=== PATIENT | male | born 1955 | race Caucasian/White ===

== ENCOUNTER 2021-06-07 00:05 | Emergency (ER) | payer MEDICARE, BC ==
[2021-06-07 00:25] LABS: #Eosinphils 0.2 thou/uL (0.0-0.7); #Lymphocytes 0.9 thou/uL (1.20-3.40); #Monocytes 0.6 thou/uL (0.11-0.59); #Neutrophils 8.5 thou/uL (1.40-6.50); %Eosinophils 2.1 % (0.0-10.0); %Lymphocytes 8.5 % (21.0-51.0); %Monocytes 6.2 % (0.0-10.0); %Neutrophils 83.2 % (42.0-75.0); Hemoglobin 9.2 g/dL (14.0-18.0); Mean Corpuscular Hemoglobin 29.7 pg (27.0-31.0); Mean Corpuscular Volume 93.1 fL (78.0-98.0); Mean Platelet Volume 7.3 fL (7.4-10.4); Platelet Count 443 thou/uL (130-400); RBC Distribution Width 15.5 % (11.5-14.5); Red Blood Cell (RBC) Count 3.09 mill/uL (4.70-6.10); White Blood Cell (WBC) Count 10.2 thou/uL (4.8-10.8)
[2021-06-07 00:37] LABS: INR-International Normal Ratio 1.1; Prothrombin Time 13.8 sec (12.0-14.7)
[2021-06-07 00:44] LABS: ALT (SGPT) Less than 7 U/L (8-55); Albumin 2.9 g/dL (3.4-4.8); Alkaline Phosphatase 96 U/L (40-110); Anion Gap 25 mmol/L (10-20); BUN (Urea Nitrogen) 12 mg/dL (8.4-25.7); Bilirubin, Total 0.4 mg/dL (0.2-1.2); CK (CPK) 21 U/L (30-200); Calc. Creatinine Clearance 0 mL/min (70-130); Calcium 8.5 mg/dL (7.8-10.44); Carbon Dioxide 15 mmol/L (23-31); Chloride 102 mmol/L (98-107); Globulin 3.2 g/dL (2.4-3.5); Glucose 90 mg/dL (80-115); Potassium 3.9 mmol/L (3.5-5.1); Protein, Total 6.1 g/dL (5.8-8.1); Sodium 138 mmol/L (136-145)
[2021-06-07 01:20] LABS: AST (SGOT) 4 U/L (5-34)
[2021-06-07] MEDS ORDERED: Valproate Sodium 250 mg/5 ml UD Cup PER TUBE SCH (02:00)
[2021-06-07 02:04] LABS: Bilirubin Negative (Negative); Blood, Urine 3+ (Negative); Clarity Clear (Clear); Glucose, Urine (Dipstick) Normal (Negative); Ketone, Urine Trace mg/dL (Negative); Leukocyte Negative Leu/uL (Negative); Nitrite Negative (Negative); Protein, Urine (Dipstick) 20 mg/dL (Neg-Trace); RBC/HPF Greater than 50 HPF (0-3); Squamous Epithelial 0-3 HPF (0-3); WBC/HPF 21-50 HPF (0-3); pH, Urine 7.5 (5.0-9.0)
[2021-06-07 02:05] LABS: Bacteria/HPF 1+ HPF (None Seen)
[2021-06-07] MEDS ORDERED: cefTRIAXone\\ROCEPHIN 2 GM VIAL ONE (02:27)
[2021-06-07] MEDS ORDERED: Iopamidol 370 76% 100 ML VIAL ONE (09:18)
== END 2021-06-07 03:02 | disposition home or self-care (01) ==
LOC: ERS 00:05
DX: R56.9 Unspecified convulsions (principal); N39.0 Urinary tract infection, site not specified; G20 Parkinson's disease
CPT/HCPCS: 36416; 70450; 70496; 70498; 80053; 81003; 81015; 82550; 83605; 84484; 85025; 85610; 85730; 93005; J0696; Q9967

== ENCOUNTER 2021-06-08 22:17 | Inpatient (IN) | payer MEDICARE, BC ==
[2021-06-08 23:20] LABS: #Eosinphils 0.2 thou/uL (0.0-0.7); #Lymphocytes 0.7 thou/uL (1.20-3.40); #Monocytes 0.8 thou/uL (0.11-0.59); #Neutrophils 12.2 thou/uL (1.40-6.50); %Eosinophils 1.1 % (0.0-10.0); %Lymphocytes 5.4 % (21.0-51.0); %Monocytes 5.5 % (0.0-10.0); Hemoglobin 8.4 g/dL (14.0-18.0); Mean Corpuscular HGB CONC 32.2 g/dL (32.0-36.0); Mean Corpuscular Volume 93.2 fL (78.0-98.0); Platelet Count 378 thou/uL (130-400); RBC Distribution Width 15.6 % (11.5-14.5); White Blood Cell (WBC) Count 13.9 thou/uL (4.8-10.8)
[2021-06-08 23:41] LABS: ALT (SGPT) Less than 7 U/L (8-55); AST (SGOT) 5 U/L (5-34); Albumin 2.7 g/dL (3.4-4.8); Alkaline Phosphatase 86 U/L (40-110); Anion Gap 13 mmol/L (10-20); BUN (Urea Nitrogen) 8 mg/dL (8.4-25.7); Bilirubin, Total 0.3 mg/dL (0.2-1.2); Calc. Creatinine Clearance 0 mL/min (70-130); Calcium 8.2 mg/dL (7.8-10.44); Carbon Dioxide 26 mmol/L (23-31); Chloride 102 mmol/L (98-107); Globulin 2.8 g/dL (2.4-3.5); Glucose 101 mg/dL (80-115); Potassium 3.7 mmol/L (3.5-5.1); Protein, Total 5.5 g/dL (5.8-8.1); Sodium 137 mmol/L (136-145)
[2021-06-09] MEDS ORDERED: cefTRIAXone\\ROCEPHIN 2 GM VIAL ONE (00:14)
[2021-06-09] MEDS ORDERED: Vancomycin 1.5 GRAM/300 ML BAG 1.5 GM in Premix Bag 1 BAG IVPB SCH (01:15)
[2021-06-09 02:31] LABS: Lactic Acid 1.5 mmol/L (0.5-2.2)
[2021-06-09 02:41] LABS: Troponin I 0.011 ng/mL (< 0.028)
[2021-06-09] MEDS ORDERED: Ondansetron ODT 4 MG TAB SL PRN (03:00)
[2021-06-09] MEDS ORDERED: Ondansetron PF 4 MG/2 ML Vial IVP PRN ×2 (03:00→07:57)
[2021-06-09] MEDS ORDERED: Acetaminophen 325 MG TAB PO PRN (03:00)
[2021-06-09] MEDS: Sodium Chloride 0.9% 1,000 ML IV SCH ×2 (06:02→15:19)
[2021-06-09 06:11] LABS: Troponin I Less than 0.010 ng/mL (< 0.028)
[2021-06-09 06:46] VITALS: BMI 20.1
[2021-06-09] MEDS ORDERED: Ondansetron ODT 4 MG TAB PO PRN (07:57)
[2021-06-09] MEDS ORDERED: Senokot S 8.6-50 MG TAB PO PRN (07:57)
[2021-06-09] MEDS: Cefepime 1 GM in Sodium Chloride 0.9% 100 ML IVPB SCH ×2 (08:33→21:12)
[2021-06-09] MEDS ORDERED: [UNRECOGNIZED DRUG - OTHER] IV SCH (08:45)
[2021-06-09 08:53] LABS: CK (CPK) 20 U/L (30-200); Magnesium 1.8 mg/dL (1.6-2.6)
[2021-06-09] MEDS ORDERED: Valproate Sodium 500 MG in Sodium Chloride 0.9% 100 ML IVPB SCH (09:00)
[2021-06-09] MEDS: Vancomycin 1 GM in Premix Bag 1 BAG IVPB SCH (14:59)
[2021-06-09] MEDS: Carbidopa/Levodopa 25-250 mg Tablet PO SCH ×3 (15:20→21:12)
[2021-06-09] MEDS: Ferrous Sulfate 325 MG TAB PO SCH ×3 (15:20→21:12)
[2021-06-09 17:24] LABS: SARS-CoV-2 PCR by NAA Not Detected (NotDetected)
[2021-06-09] MEDS ORDERED: Valproic Acid 250 MG CAP PO SCH (21:00)
[2021-06-09] MEDS: Valproate Sodium 250 mg/5 ml UD Cup PO SCH (21:13)
[2021-06-09] MEDS: Simvastatin 10 MG TAB PO SCH (21:13)
[2021-06-09] MEDS: Gabapentin 300 MG CAP PO SCH (21:13)
[2021-06-10] MEDS: Vancomycin 1 GM in Premix Bag 1 BAG IVPB SCH ×2 (03:35→16:13)
[2021-06-10 05:11] LABS: #Eosinphils 0.2 thou/uL (0.0-0.7); #Lymphocytes 0.6 thou/uL (1.20-3.40); #Monocytes 0.5 thou/uL (0.11-0.59); #Neutrophils 6.6 thou/uL (1.40-6.50); %Basophils 0.2 % (0.0-1.0); %Eosinophils 1.9 % (0.0-10.0); %Lymphocytes 7.7 % (21.0-51.0); %Monocytes 6.2 % (0.0-10.0); Hemoglobin 7.5 g/dL (14.0-18.0); Mean Corpuscular HGB CONC 31.2 g/dL (32.0-36.0); Platelet Count 315 thou/uL (130-400); RBC Distribution Width 15.9 % (11.5-14.5); White Blood Cell (WBC) Count 7.9 thou/uL (4.8-10.8)
[2021-06-10 05:34] LABS: Anion Gap 10 mmol/L (10-20); BUN (Urea Nitrogen) 7 mg/dL (8.4-25.7); Calc. Creatinine Clearance 103 mL/min (70-130); Calcium 7.9 mg/dL (7.8-10.44); Carbon Dioxide 25 mmol/L (23-31); Chloride 109 mmol/L (98-107); Glucose 86 mg/dL (80-115); Potassium 3.4 mmol/L (3.5-5.1); Sodium 141 mmol/L (136-145)
[2021-06-10] MEDS: Cefepime 1 GM in Sodium Chloride 0.9% 100 ML IVPB SCH ×2 (09:19→22:21)
[2021-06-10 14:00] LABS: Vancomycin, Trough 24.9 ug/mL
[2021-06-10] MEDS: Valproate Sodium 250 mg/5 ml UD Cup PO SCH ×2 (14:02→22:28)
[2021-06-10] MEDS: Multivit, Therapeutic 1 TAB PO SCH (14:03)
[2021-06-10] MEDS: Carbidopa/Levodopa 25-250 mg Tablet PO SCH ×5 (14:03→22:19)
[2021-06-10] MEDS: Carvedilol 3.125 MG TAB PO SCH (14:03)
[2021-06-10] MEDS: Clopidogrel Bisulfate 75 MG TAB PO SCH (14:04)
[2021-06-10] MEDS: Aspirin 81 mg Enteric Coated Tablet PO SCH (14:04)
[2021-06-10] MEDS: Ferrous Sulfate 325 MG TAB PO SCH ×2 (16:14→16:15)
[2021-06-10 20:00] LABS: Bilirubin Negative (Negative); Blood, Urine Negative (Negative); Clarity Clear (Clear); Glucose, Urine (Dipstick) Normal (Negative); Ketone, Urine 10 mg/dL (Negative); Leukocyte Negative Leu/uL (Negative); Mucous/LPF Rare LPF (<2+); Nitrite Negative (Negative); Protein, Urine (Dipstick) 20 mg/dL (Neg-Trace); RBC/HPF 0-3 HPF (0-3); Renal Epithelial 0-3 HPF (None Seen); Specific Gravity, Urine 1.023 (1.002-1.036); Squamous Epithelial None Seen HPF (0-3); Urobilinogen Normal mg/dL (Less than 2); WBC/HPF 0-3 HPF (0-3); pH, Urine 6.5 (5.0-9.0)
[2021-06-10 20:11] LABS: Bacteria/HPF Rare-Few HPF (None Seen)
[2021-06-10] MEDS: Gabapentin 300 MG CAP PO SCH (22:41)
[2021-06-10] MEDS: Simvastatin 10 MG TAB PO SCH (22:41)
[2021-06-11 07:03] LABS: #Eosinphils 0.1 thou/uL (0.0-0.7); #Lymphocytes 0.7 thou/uL (1.20-3.40); #Monocytes 0.4 thou/uL (0.11-0.59); #Neutrophils 6.5 thou/uL (1.40-6.50); %Basophils 0.1 % (0.0-1.0); %Eosinophils 1.4 % (0.0-10.0); %Lymphocytes 9.4 % (21.0-51.0); %Monocytes 4.9 % (0.0-10.0); %Neutrophils 84.3 % (42.0-75.0); Hemoglobin 6.9 g/dL (14.0-18.0); Mean Corpuscular HGB CONC 31.8 g/dL (32.0-36.0); Mean Corpuscular Hemoglobin 29.4 pg (27.0-31.0); Mean Corpuscular Volume 92.4 fL (78.0-98.0); Mean Platelet Volume 7.4 fL (7.4-10.4); Platelet Count 312 thou/uL (130-400); RBC Distribution Width 16.1 % (11.5-14.5); Red Blood Cell (RBC) Count 2.35 mill/uL (4.70-6.10); White Blood Cell (WBC) Count 7.7 thou/uL (4.8-10.8)
[2021-06-11 07:20] LABS: Anion Gap 10 mmol/L (10-20); BUN (Urea Nitrogen) 9 mg/dL (8.4-25.7); Calc. Creatinine Clearance 101 mL/min (70-130); Calcium 7.9 mg/dL (7.8-10.44); Carbon Dioxide 24 mmol/L (23-31); Chloride 110 mmol/L (98-107); Glucose 66 mg/dL (80-115); Potassium 3.4 mmol/L (3.5-5.1); Sodium 141 mmol/L (136-145)
[2021-06-11] MEDS: Cefepime 1 GM in Sodium Chloride 0.9% 100 ML IVPB SCH ×2 (09:23→20:32)
[2021-06-11] MEDS: Aspirin 81 mg Enteric Coated Tablet PO SCH (09:24)
[2021-06-11] MEDS: Acetaminophen 325 MG TAB PO PRN ×2 (09:24→20:46)
[2021-06-11] MEDS: Multivit, Therapeutic 1 TAB PO SCH (09:25)
[2021-06-11] MEDS: Clopidogrel Bisulfate 75 MG TAB PO SCH (09:25)
[2021-06-11] MEDS: Carvedilol 3.125 MG TAB PO SCH (09:25)
[2021-06-11] MEDS: Valproate Sodium 250 mg/5 ml UD Cup PO SCH ×2 (09:25→21:20)
[2021-06-11] MEDS: Carbidopa/Levodopa 25-250 mg Tablet PO SCH ×4 (10:16→20:31)
[2021-06-11] MEDS ORDERED: hydrALAZINE 20 MG/ML VIAL SLOW IVP PRN (13:29)
[2021-06-11 20:28] VITALS: BP 119/82; TEMP 99.1
[2021-06-11] MEDS: Gabapentin 300 MG CAP PO SCH (20:52)
[2021-06-11] MEDS: Simvastatin 10 MG TAB PO SCH (21:20)
== END 2021-06-11 21:40 | disposition home or self-care (01) | DRG 100 ==
LOC: ERS 22:17 → NEURO 06-09 01:16
PROVIDERS: ADMIT Internal Medicine; ATTEND Internal Medicine
PROC: 3E03329 Introduction of Other Anti-infective into Peripheral Vein, Percutaneous Approach (ICD-10-PCS; 2021-06-09)
PROC: 30233N1 Transfusion of Nonautologous Red Blood Cells into Peripheral Vein, Percutaneous Approach (ICD-10-PCS; principal; 2021-06-11)
DX: G40.909 Epilepsy, unspecified, not intractable, without status epilepticus (principal); A41.9 Sepsis, unspecified organism; L89.154 Pressure ulcer of sacral region, stage 4; N39.0 Urinary tract infection, site not specified; Z20.822 Contact with and (suspected) exposure to COVID-19; G20 Parkinson's disease; I25.10 Atherosclerotic heart disease of native coronary artery without angina pectoris; F02.80 Dementia in other diseases classified elsewhere, unspecified severity, without behavioral disturbance, psychotic disturbance, mood disturbance, and anxiety; D64.9 Anemia, unspecified; Z95.5 Presence of coronary angioplasty implant and graft; Z79.899 Other long term (current) drug therapy; Z79.82 Long term (current) use of aspirin; Z79.02 Long term (current) use of antithrombotics/antiplatelets; Z82.49 Family history of ischemic heart disease and other diseases of the circulatory system
CPT/HCPCS: 36415; 36416; 36430; 51701; 70450; 70496; 70498; 70551; 71045; 80048; 80053; 80164; 80202; 81001; 81003; 81015; 82550; 83605; 83735; 84146; 84443; 84484; 85025; 85610; 85730; 86850; 86900; 86901; 87040; 87086; 93005; 95816; 95819; 95957; 96365; 96366; 96368; 96374; J0692; J0696; J3370; J3490; P9016; Q9967; U0003; U0005